=== PATIENT | female | born 1960 | race American Indian/Alaskan Native ===

== ENCOUNTER 2017-03-08 11:15 | Inpatient (IN) | payer BC ==
[2017-03-01 14:04] VITALS: BMI 35.2
[2017-03-08] MEDS ORDERED: Midazolam 2 MG/2 ML VIAL ONE (13:05)
[2017-03-08] MEDS ORDERED: Propofol 10 mg/ml Inj (20 ML) ONE (13:05)
[2017-03-08] MEDS ORDERED: Sodium Citrate/Citric Acid 15 ml Sol ONE (13:06)
[2017-03-08] MEDS ORDERED: Clindamycin 600mg/50ml D5W 600 MG/50 ML VIAL IVPB ONE ×2 (13:30→13:31)
[2017-03-08] MEDS ORDERED: Gentamicin 80 mg in 0.9% NS 80 MG/100 ML BAG IVPB ONE (13:34)
[2017-03-08] MEDS ORDERED: Triamcinolone Acetonide 40 mg/mL Inj ONE (15:51)
[2017-03-08] MEDS ORDERED: Methylene Blue 10 mg/mL(10ml) IV ONE (15:52)
[2017-03-08] MEDS ORDERED: Lactated Ringer's 1,000 ML IV ONE ×2 (16:00→19:20)
[2017-03-08] MEDS ORDERED: Oxycodone/Acetaminophen 5/325 mg Tab PO PRN (17:16)
[2017-03-08] MEDS ORDERED: Morphine Monoject Barrel PCA 1mg/ml IV PRN (17:24)
--- NOTE | 2017-03-08 17:26 | PCM.SURG1 ---
Surgeon's Initial Post Op Note - Surgeon's Notes Surgeon: Bere Garner MD Shoe Stitcher Odd: Gordon Ruff MD, Ayden Rodriguez MD Type of Anesthesia: General Endo Pre-Operative Diagnosis: Sympomatic fibroid uterus, pelvic pain Operative Findings: enlarged multi fibriods uterus 10-12 weeks, extensive adhesins of bowel to posterior surface of uterus, sigmoid colon addherent to right cornua with right adherent fallopian tube and left fallopian tube and ovary adherent to uterus extending to pelvic side wall. bladder adhesions anterioly along lower uterine segment. Multilple myoma 8cm anterior extending across cavity to posterior uterine wall, additional lower uterine segment myoma 5cm. Bilaerla uretral jets on cystoscopy, no gorss masses. Please refer to separate dication of general surgery Dr Reddy for extensive lysis of adhesions. Removal of fogrein body 1cm egg shaped yellow solid object found sitting in posterior cul de sac. Dr Gordon Ruff was lpn medical assistant and present for entire care essential for ganing entrying, retractin, exoposure, lysing adhesions, obtaining hemostaiss, removding speciment, closing all layers. Dr Jennyfer Rodriguez was also surgical assistance and presnt for entire duratin of case and essential in helping to retract , exposure, lyse extenisve adheions, perform hysterectomy, remove specimen and close all layers. Over 4 hours of opreating time with more than 2.5 hours perfomred in lysing all other adhesions not perfomred by general surgery. Post-Operative Diagnosis: same as above, pelvic adhesions Operation Performed: Exploratory laparatomy, Total abdominal hysterectomy, left salpingoopherctomy, right salpingectomy, lysis of bladder and bowel adhesions, cystoscopy. Removal of foregin body. Specimen/Specimens Removed: cervix, uterus, right fallopian tube, left fallopian tube, left ovary, removal of foreign body Estimated Blood Loss: EBL {In ML}: 400 (Urine 250cc) Blood Products Given: N/A Drains Used: No Drains Post-Op Condition: Good Date of Surgery/Procedure: 03/08/17 Time of Surgery/Procedure: 13:00
[2017-03-08] MEDS ORDERED: Lactated Ringer's 1,000 ML IV SCH (17:30)
[2017-03-08] MEDS: HYDROmorphone 0.5 mg/0.5 ml ISec IVP PRN ×3 (17:43→18:20)
[2017-03-08 18:13] LABS: BLOOD UREA NITROGEN 12 mg/dL (7-17); GFR AFRICAN-AMERICAN > 60; GFR NON-AFRICAN AMERICAN > 60
[2017-03-08 18:14] LABS: CALCIUM 8.2 mg/dl (8.6-10.4)
[2017-03-08 18:41] LABS: BASO % 0.2 % (0.0-2.0); EOS % 0.1 % (0.0-4.0); HEMOGLOBIN 12.7 g/dL (11.0-16.0); LYMPH # 1.4 K/uL (1.0-4.3); LYMPH % 11.3 % (20.0-40.0); MEAN CELL VOLUME 88.9 fL (81.0-99.0); MEAN CORPUSCULAR HEMOGLOBIN 28.4 pg (27.0-31.0); MEAN CORPUSCULAR HGB CONC 31.9 g/dL (33.0-37.0); MEAN PLATELET VOLUME 9.8 fL (7.2-11.7); MONO # 0.6 K/uL (0.0-0.8); MONO % 4.4 % (0.0-10.0); NEUT # 10.6 K/uL (1.8-7.0); RBC 4.46 Mil/uL (3.80-5.20); RED CELL DISTRIBUTION WIDTH 14.7 % (11.5-14.5); WHITE BLOOD COUNT 12.7 K/uL (4.8-10.8)
[2017-03-08 18:55] LABS: GFR AFRICAN-AMERICAN > 60; GFR NON-AFRICAN AMERICAN > 60
[2017-03-08 18:56] LABS: BLOOD UREA NITROGEN 12 mg/dL (7-17); CALCIUM 8.2 mg/dl (8.6-10.4)
[2017-03-08] MEDS: Potassium Chloride 20 MEQ in Lactated Ringer's 1,000 ML IV SCH (20:38)
[2017-03-08] MEDS: Clindamycin 600mg/50ml D5W 600 MG/50 ML VIAL IVPB SCH (20:40)
[2017-03-09] MEDS: Clindamycin 600mg/50ml D5W 600 MG/50 ML VIAL IVPB SCH ×2 (04:07→12:37)
--- NOTE | 2017-03-09 04:42 | OP ---
PROCEDURE DATE: 03/08/2017 PREOPERATIVE DIAGNOSES: 1. Fibroid uterus. 2. Undergoing total hysterectomy by Dr. Garner. 3. Extensive postoperative adhesion of sigmoid to the uterus. POSTOPERATIVE DIAGNOSES: 1. Fibroid uterus. 2. Undergoing total hysterectomy by Dr. Garner. 3. Extensive postoperative adhesion of sigmoid to the uterus. PROCEDURE DONE: Open extensive lysis of adhesions. SURGEON: The procedure was done by Tom chirinos MD RADAR SCIENTIST: Gordon Ruff MD TYPE OF ANESTHESIA: General endotracheal. ESTIMATED BLOOD LOSS: Around 10 mL for this part of the procedure. DRAINS: None. PATHOLOGY: None. COMPLICATIONS: None. INTRAOPERATIVE FINDINGS: The patient had extensive adhesion of the sigmoid to the posterior wall of the uterus. This is a 57-year-old female who was undergoing open total abdominal hysterectomy and the patient had extensive postoperative adhesion. The intraoperative consult was followed by Dr. Garner for adhesiolysis, and the patient was undergoing total abdominal hysterectomy and extensive lysis of adhesions was done. After this lysis of adhesions, the sigmoid colon was rechecked for any serosal tear or any other injury. There was no injuries identified and after proper hemostasis, the procedure was continued by Dr. Garner for total abdominal hysterectomy. Up to this part of the procedure, there was no apparent complication. The patient tolerated the procedure well. Sponge and instrument counts were correct. Tom Banks MD
[2017-03-09] MEDS: Potassium Chloride 20 MEQ in Lactated Ringer's 1,000 ML IV SCH (05:19)
[2017-03-09] MEDS: Pantoprazole 20 mg EC Tab PO SCH ×2 (06:51→11:00)
--- NOTE | 2017-03-09 07:26 | CP.PCM.PN ---
<Claudia Benton - Last Filed: 03/09/17 08:21> Subjective - Date & Time of Evaluation Date of Evaluation: 03/09/17 Time of Evaluation: 07:25 - Subjective Subjective: Patient seen and examined at bedside. Per nursing no acute events overnight. Patient was c/o gastric reflux, home medication omeprazole was restarted. Pain is controlled, patient is out of bed and in chair. Tolerating diet. Duran catheter out. Denies passing flatus or BM. Denies any fevers, chills, N/V, headache, dizziness, CP, SOB, urinary symptoms. Objective - Vital Signs/Intake and Output Vital Signs (last 24 hours): Temp Pulse Resp BP Pulse Ox 97.2 F L 60 20 138/81 100 03/09/17 00:11 03/09/17 00:11 03/09/17 00:11 03/09/17 00:11 03/09/17 00:11 Intake and Output: 03/09/17 03/09/17 06:59 18:59 Intake Total 1400 Output Total 700 Balance 700 - Medications Medications: Current Medications Clindamycin Phosphate (Cleocin) 600 mg in 50 mls @ 102 mls/hr IVPB Q8H [facility] Stop: 03/09/17 13:30 Last Admin: 03/09/17 04:07 Dose: 102 mls/hr Gentamicin Sulfate 80 mg/ (Sodium Chloride) 102 mls @ 100 mls/hr IVPB Q8H [facility] Stop: 03/09/17 15:17 Last Admin: 03/09/17 05:18 Dose: 100 mls/hr Potassium Chloride 20 meq/ (Lactated Ringer's) 1,010 mls @ 125 mls/hr IV .Q8H5M [facility] Stop: 03/09/17 09:39 Last Admin: 03/09/17 05:19 Dose: 125 mls/hr Lisinopril (Zestril) 5 mg PO DAILY [facility] Ondansetron HCl (Zofran Inj) 4 mg IVP ONCE PRN PRN Reason: Nausea/Vomiting Oxycodone/Acetaminophen (Percocet 5/325 Mg Tab) 2 tab PO Q4 PRN PRN Reason: Pain, severe (8-10) Stop: 03/11/17 17:17 Oxycodone/Acetaminophen (Percocet 5/325 Mg Tab) 1 tab PO Q6 PRN PRN Reason: Pain, moderate (4-7) Stop: 03/11/17 17:17 Pantoprazole Sodium (Protonix Ec Tab) 20 mg PO DAILY [facility] Last Admin: 03/09/17 06:51 Dose: 20 mg - Labs Labs: 03/08/17 18:34 03/08/17 18:34 - Constitutional Appears: Well, No Acute Distress - Head Exam Head Exam: ATRAUMATIC, NORMAL INSPECTION - Eye Exam Eye Exam: EOMI, Normal appearance - ENT Exam ENT Exam: Mucous Membranes Moist - Neck Exam Neck Exam: Full ROM - Respiratory Exam Respiratory Exam: Clear to Ausculation Bilateral, NORMAL BREATHING PATTERN - Cardiovascular Exam Cardiovascular Exam: REGULAR RHYTHM, +S1, +S2 - GI/Abdominal Exam GI & Abdominal Exam: Soft, Tenderness (Abdomen appropriately tender), Hypoactive Bowel Sounds Additional comments: Dressing c/d/i - Extremities Exam Extremities Exam: Full ROM, Normal Inspection. absent: Calf Tenderness Additional comments: Pedal pulses present - Back Exam Back Exam: NORMAL INSPECTION - Neurological Exam Neurological Exam: Alert, Awake, Oriented x3 - Psychiatric Exam Psychiatric exam: Normal Affect, Normal Mood - Skin Skin Exam: Normal Color, Warm Assessment and Plan (1) Fibroid uterus Status: Acute - Assessment and Plan (Free Text) Assessment: 57 yo F s/p Total abdominal Hysterectomy, L salpingoopherectomy, R salpingectomy , lysis of bowel/bladder adhesions, cystoscopy, removal of foreign body POD #1 1. Stable, afebrile 2. Pain control - HAND CANDLE MOLDER discontinued, continue Percocet prn pain 3. F/U am CBC 4. Continue Genta and Clindamycin 5. Advance diet as tolerated 6. Duran out this am, f/u voiding trial 7. Encourage ambulation, hydration, ISS use 8. Hx of HTN - continue Lisinopril 9. Hx of acid reflux - continue pantoprazole 10. Continue routine postop care 11. Plan d/w attending <Bere Garner - Last Filed: 03/09/17 18:56> Subjective - Subjective Subjective: agree iwth above Objective - Vital Signs/Intake and Output Vital Signs (last 24 hours): Temp Pulse Resp BP Pulse Ox 98 F 67 20 125/76 96 03/09/17 16:00 03/09/17 16:00 03/09/17 16:00 03/09/17 16:00 03/09/17 16:00 Intake and Output: 03/09/17 03/09/17 06:59 18:59 Intake Total 1400 Output Total 700 Balance 700 - Medications Medications: Current Medications Docusate Sodium (Colace) 100 mg PO BID [facility] Last Admin: 03/09/17 18:36 Dose: 100 mg Lisinopril (Zestril) 5 mg PO DAILY [facility] Last Admin: 03/09/17 10:07 Dose: 5 mg Ondansetron HCl (Zofran Inj) 4 mg IVP ONCE PRN PRN Reason: Nausea/Vomiting Oxycodone/Acetaminophen (Percocet 5/325 Mg Tab) 2 tab PO Q4 PRN PRN Reason: Pain, severe (8-10) Stop: 03/11/17 17:17 Last Admin: 03/09/17 10:42 Dose: 2 tab Oxycodone/Acetaminophen (Percocet 5/325 Mg Tab) 1 tab PO Q6 PRN PRN Reason: Pain, moderate (4-7) Stop: 03/11/17 17:17 Last Admin: 03/09/17 18:36 Dose: 1 tab Pantoprazole Sodium (Protonix Ec Tab) 20 mg PO DAILY [facility] Last Admin: 03/09/17 11:00 Dose: Not Given - Labs Labs: 03/09/17 08:59 03/09/17 08:59 Assessment and Plan - Assessment and Plan (Free Text) Assessment: pt seen and examine,d agree with plan of care
--- NOTE | 2017-03-09 08:21 | CP.PCM.PN ---
Subjective - Date & Time of Evaluation Date of Evaluation: 03/09/17 Time of Evaluation: 07:00 - Subjective Subjective: Patient seen and examined this morning. No complaints. Patient denies n/v. Denies passing flatus. Out of bed to chair. Objective - Vital Signs/Intake and Output Vital Signs (last 24 hours): Temp Pulse Resp BP Pulse Ox 97.2 F L 60 20 138/81 100 03/09/17 00:11 03/09/17 00:11 03/09/17 00:11 03/09/17 00:11 03/09/17 00:11 Intake and Output: 03/09/17 03/09/17 06:59 18:59 Intake Total 1400 Output Total 700 Balance 700 - Medications Medications: Current Medications Clindamycin Phosphate (Cleocin) 600 mg in 50 mls @ 102 mls/hr IVPB Q8H [facility] Stop: 03/09/17 13:30 Last Admin: 03/09/17 04:07 Dose: 102 mls/hr Gentamicin Sulfate 80 mg/ (Sodium Chloride) 102 mls @ 100 mls/hr IVPB Q8H [facility] Stop: 03/09/17 15:17 Last Admin: 03/09/17 05:18 Dose: 100 mls/hr Potassium Chloride 20 meq/ (Lactated Ringer's) 1,010 mls @ 125 mls/hr IV .Q8H5M [facility] Stop: 03/09/17 09:39 Last Admin: 03/09/17 05:19 Dose: 125 mls/hr Lisinopril (Zestril) 5 mg PO DAILY [facility] Ondansetron HCl (Zofran Inj) 4 mg IVP ONCE PRN PRN Reason: Nausea/Vomiting Oxycodone/Acetaminophen (Percocet 5/325 Mg Tab) 2 tab PO Q4 PRN PRN Reason: Pain, severe (8-10) Stop: 03/11/17 17:17 Oxycodone/Acetaminophen (Percocet 5/325 Mg Tab) 1 tab PO Q6 PRN PRN Reason: Pain, moderate (4-7) Stop: 03/11/17 17:17 Pantoprazole Sodium (Protonix Ec Tab) 20 mg PO DAILY [facility] Last Admin: 03/09/17 06:51 Dose: 20 mg - Labs Labs: 03/08/17 18:34 03/08/17 18:34 - Constitutional Appears: No Acute Distress - Head Exam Head Exam: NORMOCEPHALIC - Eye Exam Eye Exam: Normal appearance - ENT Exam ENT Exam: Mucous Membranes Moist - Respiratory Exam Respiratory Exam: NORMAL BREATHING PATTERN - Cardiovascular Exam Cardiovascular Exam: +S1, +S2 - GI/Abdominal Exam GI & Abdominal Exam: Soft, Tenderness - Neurological Exam Neurological Exam: Alert, Awake, Oriented x3 - Psychiatric Exam Psychiatric exam: Normal Mood - Skin Skin Exam: Dry, Warm Assessment and Plan - Assessment and Plan (Free Text) Assessment: 57F s/p ASIA, L salpingoopherectomy, R salpingectomy, w/ general surgery intra- operative consult for lysis of adhesions -From surgical standpoint can advance diet as tolerated -Encourage incentive spirometer use -Encourage pt to be out of bed and ambulate -Medical management as per primary team -Further recs per Dr. Jocelyn Mata PGY-2
--- NOTE | 2017-03-09 08:45 | OP ---
PROCEDURE DATE: 03/08/2017 PREOPERATIVE DIAGNOSIS: Symptomatic fibroid uterus, pelvic pain. POSTOPERATIVE DIAGNOSIS: Symptomatic fibroid uterus, pelvic pain with pelvic and abdominal adhesions. SURGEON: Dr. Bere Garner TOGGLER: Dr. Gordon Ruff and Dr. Ayden Rodriguez. TYPE OF ANESTHESIA: General endotracheal. OPERATIVE FINDINGS: Enlarged fibroid uterus 10-12 week size, extensive adhesions about the posterior surface of the uterus. Sigmoid colon adherent to right cornu with right adherent fallopian tube and left fallopian tube adherent to the uterus extending to the pelvic sidewall and ____ anteriorly along the lower uterine segment. Multiple myomas 8 cm anterior extending across the cavity to posterior uterine wall. Additional lower uterine segment myoma 5 cm, bilateral ureteric jet seen on cystoscopy. No gross intrabladder masses. Please refer to separate dictation of General Surgery by Dr. Banks for extensive lysis of adhesions, removal of foreign body 1 cm egg-shaped yellow object found sitting in the posterior cul-de-sac. Dr. Gordon Ruff was the surgical nurse practitioner present for entire case, and essentially gaining anterior retraction, specializing in adhesions, obtaining hemostasis, moving specimens, closing all layers. Dr. Ayden Rodriguez was also essential and surgical nurse practitioner for gaining anterior retraction, closure, lysing the dense adhesions, help to obtain hemostasis, removing specimen, closing all layers, performing the hysterectomy, and achieve over 4 hours of operating time with more than 2.5 hours performed in lysing all adhesions not performed by General Surgery. OPERATION PERFORMED: Exploratory laparotomy, total abdominal hysterectomy, left salpingo oophorectomy, right salpingectomy, lysis of bladder and bowel adhesions, cystoscopy removal of foreign body. SPECIMEN: Reveals cervix, uterus, right fallopian tube, left fallopian tube, left ovary, removal of foreign body. ESTIMATED BLOOD LOSS: 400 mL. URINE OUTPUT: 250 mL. BLOOD PRODUCTS: None. COMPLICATIONS: None. DRAINS: None. DESCRIPTION OF PROCEDURE: The patient was taken to the operating room where she was given general anesthesia. Once this was found to be adequate, she was placed on the operating table in the dorsal supine position. The patient was then prepped and draped in the usual sterile fashion. An Pfannenstiel incision was made in the abdomen and carried down to the underlying fascia with the Bovie. The fascia was incised and the midline incision stayed laterally with a Bovie. The superior aspect of the fascial incision was grasped with Allis and Gwen clamps and the underlying rectus muscle resected off bluntly. Attention was then turned to the inferior aspect and in similar fashion grasped with Allis and Gwen clamps and the underlying rectus muscle resected off bluntly. Once inside the abdominal cavity, a self-retaining retractor was placed to expose the pelvic cavity with three lap sponges. The uterus was identified and there was dense adhesions noted along the entire anterior and posterior cervix of the uterus. The uterus was grasped on the fundus with a double toothed tenaculum with upward traction. The bowel adhesions were carefully lysed into the clear segment and General Surgery was then called to help expose and mobilize the uterus. Please refer to the separate dictation note. Following this, the round ligaments on either side were identified and individually dissected and ligated with 0-Vicryl suture and divided. This allowed us to then create a bladder flap by both blunt and sharp dissection. The bladder adhesions were carefully dissected anteriorly with the Metzenbaum scissors and the pickup and extended inferiorly. After bladder adhesions were noted to be few within the plane, the lower end of the Zeenat was re-inserted to help resect the bladder. The bladder flap was created by both blunt and sharp dissection, extension from the round ligament. The fallopian tube and ovarian ligament were isolated on the right side through the broad ligament from the uterine body and ligated with 0-Vicryl suture which also helped free the bowel adhesions adherent to the uterus. It was ligated with 0-Vicryl suture and divided as well. The uterine vessels were then skeletonized on either side and carefully dissected and the bladder flap was created anteriorly. Posteriorly, the peritoneum was dissected downward towards the uterosacral ligament after bowel adhesions were being ____. The left tube and ovary were adherent and the adhesions were carefully lysed in clear space. The IP ligament was identified after and prior to cramping and cauterizing, the ureter was identified prior to suture ligating the IP ligament. The uterine on the left side was also isolated and skeletonized, suture ligated and examined. Curtis clamps were then placed at the isthmic portion of the cervical body and to the uterine arteries that were in the uterus.. It was clamped, ligated, and divided using 0-Vicryl suture. Reminder of the uterus was then removed by clamp, cut, ligation technique using 0-Vicryl suture on all major pedicles. With removal of the uterus and cervix, the vaginal cuff was closed in the usual manner of 0-Vicryl suture in a running continuous manner. Hemostasis was then inspected and secured throughout the entire abdomen. The abdomen was then irrigated and again there was good hemostasis noted including at the bowel lysis site. We closed the peritoneum over the vaginal cuff using 2-0 Vicryl suture in a running continuous manner. There was good hemostasis noted on all operation sites. Laps, sponges, needles were removed and the self retraining retractor was removed. At this point, all needle, sponge, and instrument counts were noted to be correct x2. There were no complications. The peritoneum was reapproximated and closed with 2-0 chromic, the rectus was reapproximated and closed 2-0 chromic, the fascia was reapproximated and closed with 0-Vicryl in running continuous fashion. Subcutaneous was filled with 2-0 plain in an interrupted manner . The skin was re-approximated and closed with 4-0 Monocryl in subcuticular fashion. The abdomen was cleaned and Kenalog injection was applied intradermally to help prevent keloid formation. The abdomen was then prepped and cleaned and a clean pressure dressing was applied to the abdomen. This portion of the procedure was completed and the attention was then turned to the perineum where cystoscopy was then performed. The patient was placed in a frog leg position in the dorsal lithotomy position. The genitalia was then prepped and draped again in the usual sterile fashion. A 21-Spanish cystoscope was inserted in the urethra under camera vision after the Duran catheter was removed. The urethra was unremarkable. There was no gross masses noted within the bladder and no tissues noted. There were bilateral ureteric jets noted on both the right and left side which were peristaltic. The cystoscope was then removed. At the end of the procedure, all needle, sponge, instrument counts were noted to be correct x2. The patient tolerated the procedure well and was transferred to the recovery room in stable condition. Bere Garner MD
[2017-03-09 09:06] LABS: HEMOGLOBIN 11.5 g/dL (11.0-16.0); MEAN CELL VOLUME 88.9 fL (81.0-99.0); MEAN CORPUSCULAR HEMOGLOBIN 27.9 pg (27.0-31.0); MEAN CORPUSCULAR HGB CONC 31.4 g/dL (33.0-37.0); MEAN PLATELET VOLUME 10.5 fL (7.2-11.7); RBC 4.12 Mil/uL (3.80-5.20); RED CELL DISTRIBUTION WIDTH 14.4 % (11.5-14.5); WHITE BLOOD COUNT 11.9 K/uL (4.8-10.8)
[2017-03-09 09:17] LABS: BLOOD UREA NITROGEN 10 mg/dL (7-17); CALCIUM 8.2 mg/dl (8.6-10.4); GFR AFRICAN-AMERICAN > 60; GFR NON-AFRICAN AMERICAN > 60
[2017-03-09 16:10] VITALS: O2SAT 96
[2017-03-09] MEDS: Oxycodone/Acetaminophen 5/325 mg Tab PO PRN (18:36)
[2017-03-09] MEDS: Simethicone 80 mg Chewtab PO SCH (21:08)
--- NOTE | 2017-03-10 07:12 | CP.PCM.PN ---
<Claudia Benton - Last Filed: 03/10/17 07:17> Subjective - Date & Time of Evaluation Date of Evaluation: 03/10/17 Time of Evaluation: 07:11 - Subjective Subjective: Patient seen and examined at bedside. Patient is doing well, pain is controlled. Per nursing no acute events overnight. Patient is ambulating and tolerating diet. Urinating without difficulty. Denies passing flatus or BM. Denies headaches, dizziness, CP, SOB, abdominal pain, urinary symptoms. Objective - Vital Signs/Intake and Output Vital Signs (last 24 hours): Temp Pulse Resp BP Pulse Ox 98 F 67 20 125/76 96 03/09/17 16:00 03/09/17 16:00 03/09/17 16:00 03/09/17 16:00 03/09/17 16:00 - Medications Medications: Current Medications Docusate Sodium (Colace) 100 mg PO BID [facility] Last Admin: 03/09/17 18:36 Dose: 100 mg Lisinopril (Zestril) 5 mg PO DAILY [facility] Last Admin: 03/09/17 10:07 Dose: 5 mg Lorazepam (Ativan) 0.5 mg PO ONCE PRN PRN Reason: Anxiety Ondansetron HCl (Zofran Inj) 4 mg IVP ONCE PRN PRN Reason: Nausea/Vomiting Oxycodone/Acetaminophen (Percocet 5/325 Mg Tab) 2 tab PO Q4 PRN PRN Reason: Pain, severe (8-10) Stop: 03/11/17 17:17 Last Admin: 03/09/17 10:42 Dose: 2 tab Oxycodone/Acetaminophen (Percocet 5/325 Mg Tab) 1 tab PO Q6 PRN PRN Reason: Pain, moderate (4-7) Stop: 03/11/17 17:17 Last Admin: 03/09/17 18:36 Dose: 1 tab Pantoprazole Sodium (Protonix Ec Tab) 20 mg PO DAILY [facility] Last Admin: 03/09/17 11:00 Dose: Not Given Simethicone (Mylicon Chew Tab) 80 mg PO QID [facility] Last Admin: 03/09/17 21:08 Dose: 80 mg - Labs Labs: 03/09/17 08:59 03/09/17 08:59 - Constitutional Appears: Well, No Acute Distress - Head Exam Head Exam: ATRAUMATIC, NORMAL INSPECTION - Eye Exam Eye Exam: EOMI, Normal appearance Pupil Exam: NORMAL ACCOMODATION - ENT Exam ENT Exam: Mucous Membranes Moist - Neck Exam Neck Exam: Full ROM, Normal Inspection - Respiratory Exam Respiratory Exam: Clear to Ausculation Bilateral, NORMAL BREATHING PATTERN - Cardiovascular Exam Cardiovascular Exam: REGULAR RHYTHM, +S1, +S2 - GI/Abdominal Exam GI & Abdominal Exam: Soft, Tenderness (appropriately tender to palpation), Hypoactive Bowel Sounds, Normal Bowel Sounds Additional comments: Dressing c/d/i - Extremities Exam Extremities Exam: Full ROM, Normal Inspection. absent: Calf Tenderness - Back Exam Back Exam: NORMAL INSPECTION - Neurological Exam Neurological Exam: Alert, Awake, Oriented x3 - Psychiatric Exam Psychiatric exam: Normal Affect, Normal Mood - Skin Skin Exam: Normal Color, Warm Assessment and Plan (1) Fibroid uterus Status: Acute - Assessment and Plan (Free Text) Assessment: 57 yo F s/p ASIA with L salpingoopherectomy, R salpingectomy, lysis of bowel/ bladder adhesions, removal of foreign body, cystoscopy POD#2 1. Stable afebrile 2. Pain control - percocet prn 3. Encourage ambulation, hydration, ISS use 4. Hx of HTN - continue Lisinopril 5. Hx of acid reflux - continue pantoprazole 6. Post op hgb stable 12.7 -> 11.5 7. Continue routine post op care 8. Anticipate D/C home today - patient to follow up with office in 1 weeks for postop check, percocet/motrin pain prn, pelvic rest x 6 weeks 9. Plan d/w attending <Bere Garner - Last Filed: 03/10/17 16:01> Subjective - Subjective Subjective: agree with Objective - Vital Signs/Intake and Output Vital Signs (last 24 hours): Temp Pulse Resp BP Pulse Ox 98.9 F 77 18 141/92 H 96 03/10/17 08:00 03/10/17 08:00 03/10/17 08:00 03/10/17 08:00 03/09/17 16:00 - Medications Medications: Current Medications Docusate Sodium (Colace) 100 mg PO BID [facility] Last Admin: 03/10/17 10:11 Dose: 100 mg Lisinopril (Zestril) 5 mg PO DAILY [facility] Last Admin: 03/09/17 10:07 Dose: 5 mg Lorazepam (Ativan) 0.5 mg PO ONCE PRN PRN Reason: Anxiety Ondansetron HCl (Zofran Inj) 4 mg IVP ONCE PRN PRN Reason: Nausea/Vomiting Oxycodone/Acetaminophen (Percocet 5/325 Mg Tab) 2 tab PO Q4 PRN PRN Reason: Pain, severe (8-10) Stop: 03/11/17 17:17 Last Admin: 03/09/17 10:42 Dose: 2 tab Oxycodone/Acetaminophen (Percocet 5/325 Mg Tab) 1 tab PO Q6 PRN PRN Reason: Pain, moderate (4-7) Stop: 03/11/17 17:17 Last Admin: 03/10/17 10:11 Dose: 1 tab Pantoprazole Sodium (Protonix Ec Tab) 20 mg PO DAILY [facility] Last Admin: 03/10/17 10:10 Dose: 20 mg Simethicone (Mylicon Chew Tab) 80 mg PO QID [facility] Last Admin: 03/10/17 10:12 Dose: 80 mg - Labs Labs: 03/09/17 08:59 03/09/17 08:59 Assessment and Plan - Assessment and Plan (Free Text) Assessment: agre with above pt seen and examined, feeling well, s/p bm. pain controlled dc ome rto 1 week precautins givne
[2017-03-10 09:24] VITALS: BP 141/92; PULSE 77; RESP 18; TEMP 98.9
[2017-03-10] MEDS: Pantoprazole 20 mg EC Tab PO SCH (10:10)
[2017-03-10] MEDS: Oxycodone/Acetaminophen 5/325 mg Tab PO PRN (10:11)
[2017-03-10] MEDS: Simethicone 80 mg Chewtab PO SCH (10:12)
[2017-03-10] MEDS ORDERED: Docusate-Senna 50 mg-8.6 mg Tab PO ONE (10:52)
[2017-03-10] MEDS ORDERED: Bacitracin 500 Units/gm Oint Foilpak UD TOP ONE (11:16)
--- NOTE | 2017-03-10 13:45 | CP.PCM.DIS ---
Provider - Provider Date of Admission: 03/08/17 11:15 Attending physician: Bere Garner MD Consults: General surgery [place] consult: Dr Tracy Time Spent in preparation of Discharge (in minutes): 45 Diagnosis - Discharge Diagnosis (1) Fibroid uterus Status: Acute Hospital Course - Lab Results Lab Results: Most Recent Lab Values WBC 11.9 K/uL (4.8-10.8) H 03/09/17 08:59 RBC 4.12 Mil/uL (3.80-5.20) 03/09/17 08:59 Hgb 11.5 g/dL (11.0-16.0) 03/09/17 08:59 Hct 36.6 % (34.0-47.0) 03/09/17 08:59 MCV 88.9 fL (81.0-99.0) 03/09/17 08:59 MCH 27.9 pg (27.0-31.0) 03/09/17 08:59 MCHC 31.4 g/dL (33.0-37.0) L 03/09/17 08:59 RDW 14.4 % (11.5-14.5) 03/09/17 08:59 Plt Count 167 K/uL (130-400) 03/09/17 08:59 MPV 10.5 fL (7.2-11.7) 03/09/17 08:59 Neut % (Auto) 84.0 % (50.0-75.0) H 03/08/17 18:34 Lymph % (Auto) 11.3 % (20.0-40.0) L 03/08/17 18:34 Leake % (Auto) 4.4 % (0.0-10.0) 03/08/17 18:34 Eos % (Auto) 0.1 % (0.0-4.0) 03/08/17 18:34 Baso % (Auto) 0.2 % (0.0-2.0) 03/08/17 18:34 Neut # 10.6 K/uL (1.8-7.0) H 03/08/17 18:34 Lymph # 1.4 K/uL (1.0-4.3) 03/08/17 18:34 Leake # 0.6 K/uL (0.0-0.8) 18 18:34 Eos # 0.0 K/uL (0.0-0.7) 03/08/17 18:34 Baso # 0.0 K/uL (0.0-0.2) 18 18:34 Sodium 136 mmol/L (132-148) 03/09/17 08:59 Potassium 4.0 mmol/L (3.6-5.2) 03/09/17 08:59 Chloride 104 mmol/L (98-107) 03/09/17 08:59 Carbon Dioxide 23 mmol/L (22-30) 03/09/17 08:59 Anion Gap 14 (10-20) 03/09/17 08:59 BUN 10 mg/dL (7-17) 03/09/17 08:59 Creatinine 0.5 MG/DL (0.7-1.2) L 03/09/17 08:59 Est GFR ( Amer) > 60 03/09/17 08:59 Est GFR (Non-Af Amer) > 60 03/09/17 08:59 Random Glucose 105 mg/dL (65-105) 03/09/17 08:59 Calcium 8.2 mg/dl (8.6-10.4) L 03/09/17 08:59 Blood Type O POSITIVE 03/08/17 12:05 Antibody Screen Negative 03/08/17 12:05 - Hospital Course Hospital Course: Patient is a 57 yo F with pmhx of HTN was admitted for scheduled hysterectomy due to symptomatic fibroids. Patient underwent total abdominal hysterectomy with L salpingoopherectomy, R salpingectomy, lysis of bowel/bladder adhesions, removal of foreign body, and cystoscopy. Patient tolerated the procedure well. Post op hgb was stable. Patient was restarted on Lisinopril and pantoprazole on POD#1. During recovery period, pain was controlled. Patient was ambulating, tolerating diet, urinating without difficulty. Patient had a BM and was passing gas. On POD#2, day of discharge, patient was stable and given prescriptions for percocet and motrin. Patient instructed to avoid heavy lifting, pelvic rest x 6 weeks, and to follow up with office in 1 week for post-op check. All questions and concerns were addressed. Discharge Exam - Head Exam Head Exam: ATRAUMATIC, NORMAL INSPECTION - Eye Exam Eye Exam: EOMI, Normal appearance Pupil Exam: NORMAL ACCOMODATION - ENT Exam ENT Exam: Mucous Membranes Moist - Respiratory Exam Respiratory Exam: Clear to PA & Lateral, NORMAL BREATHING PATTERN Additional comments: ISS at bedside - Cardiovascular Exam Cardiovascular Exam: REGULAR RHYTHM, +S1, +S2 - GI/Abdominal Exam GI & Abdominal Exam: Normal Bowel Sounds, Soft, Tenderness (appropriately tender to palpation). absent: Rigid Additional comments: Incision c/d/i with steristrips - Extremities Exam Extremities exam: normal inspection, pedal pulses present - Back Exam Back exam: NORMAL INSPECTION - Neurological Exam Neurological exam: Alert, Oriented x3 - Psychiatric Exam Psychiatric exam: Normal Affect, Normal Mood - Skin Skin Exam: Normal Color, Warm Discharge Plan - Discharge Medications Prescriptions: Ibuprofen [Motrin] 600 mg PO Q6H #10 tab oxyCODONE/Acetaminophen [Percocet 5/325 mg Tab] 1 tab PO Q6 PRN #15 tab PRN Reason: Pain, Moderate (4-7) - Follow Up Plan Condition: GOOD Disposition: HOME/ ROUTINE Instructions: Abdominal Hysterectomy (DC), Salpingectomy (DC) Additional Instructions: Percocet/Motrin prn pain, pelvic rest x 6 weeks, f/u office in 1 week
== END 2017-03-10 15:30 | disposition home or self-care (01) | DRG 743 ==
LOC: C.9S 11:15 → C.4M 14:19
PROVIDERS: ADMIT Obstetrics & Gynecology; ATTEND Obstetrics & Gynecology
PROC: 0UT10ZZ Resection of Left Ovary, Open Approach (ICD-10-PCS; 2017-03-08)
PROC: 0UT70ZZ Resection of Bilateral Fallopian Tubes, Open Approach (ICD-10-PCS; 2017-03-08)
PROC: 0DNN0ZZ Release Sigmoid Colon, Open Approach (ICD-10-PCS; 2017-03-08)
PROC: 0TJB8ZZ Inspection of Bladder, Via Natural or Artificial Opening Endoscopic (ICD-10-PCS; 2017-03-08)
PROC: 0UT90ZZ Resection of Uterus, Open Approach (ICD-10-PCS; principal; 2017-03-08 12:30)
PROC: 0UTC0ZZ Resection of Cervix, Open Approach (ICD-10-PCS; 2017-03-08 12:30)
DX: D25.9 Leiomyoma of uterus, unspecified (principal); K66.0 Peritoneal adhesions (postprocedural) (postinfection); N72 Inflammatory disease of cervix uteri; N73.6 Female pelvic peritoneal adhesions (postinfective); K21.9 Gastro-esophageal reflux disease without esophagitis; I10 Essential (primary) hypertension